=== PATIENT | male | born 2000 | race Caucasian/White ===

== ENCOUNTER 2023-05-02 08:49 | Outpatient (REF) | payer OTHER, SELFPAY ==
--- NOTE | ~2023-05-02 | MR_ITS ---
EXAMINATION: MR LUMBAR SPINE WITHOUT CONTRAST CLINICAL INFORMATION: Pain. COMPARISON: None TECHNIQUE: MRI of the lumbar spine was obtained using routine sequences without contrast. The acquired sequences are mild to moderately motion degraded. FINDINGS: The lumbar vertebral bodies maintain normal heights. There is trace retrolisthesis of L3 on L4. There is disc desiccation and mild disc height loss at the L3-L4 and L4-L5 levels. No bone marrow edema is seen. The distal spinal cord appears normal. The conus medullaris terminates normally at the T12 level. The visualized paraspinal muscles and intra-abdominal and pelvic contents are within normal limits. SPINAL LEVELS: L1-L2: No posterior disc abnormality. No spinal canal or neural foraminal stenosis. L2-L3: No posterior disc abnormality. No spinal canal or neural foraminal stenosis. L3-L4: Disc bulging with central protrusion and annular fissuring resulting in mild spinal canal stenosis and bilateral subarticular stenosis. Mild right more than left neural foraminal stenosis. L4-L5: Disc bulging with central protrusion resulting in abutment of the traversing left L5 nerve root in the subarticular zone. Mild to moderate facet arthropathy. Mild right neural foraminal stenosis. Mild spinal canal stenosis. L5-S1: Disc bulging with left subarticular protrusion resulting in compression of the traversing left S1 nerve root. Mild to moderate facet arthropathy. Mild left neural foraminal stenosis. No spinal canal stenosis. MR/MR lumbar spine wo con IMPRESSION: 1. At L5-S1 there is left subarticular protrusion resulting in compression of the traversing left S1 nerve root. 2. At L4-L5 there is central protrusion resulting in abutment of the traversing left L5 nerve root in the subarticular zone. 3. At L3-L4 there is central protrusion resulting in mild spinal canal stenosis and bilateral subarticular stenosis.
== END 2023-05-02 08:50 | disposition home or self-care (01) ==
LOC: HO.MRI 08:49
PROVIDERS: Visit Provider Family Medicine
DX: M54.50 Low back pain, unspecified (principal)
CPT/HCPCS: 72148